=== PATIENT | female | born 1965 ===

== ENCOUNTER 2020-04-20 12:07 | Emergency (ER) | payer OTHER ==
[~2020-04-20] VITALS: Ht 167.6 cm; Wt 72.6 kg
[2020-04-20] MEDS ORDERED: MEDROLPACK (12:42)
== END 2020-04-20 18:17 | disposition home or self-care (01) ==
LOC: ER 12:07 → EDBD 13:00 → ER 18:17
DX: R00.2 Palpitations (principal); E03.8 Other specified hypothyroidism; F41.1 Generalized anxiety disorder